=== PATIENT | female | born 1935 | race Hispanic/Latino ===

== ENCOUNTER 2018-04-22 10:21 | Day surgery (SDC) | payer MEDICARE, OTHER ==
[2018-04-22] MEDS ORDERED: Propofol 10 mg/ml Inj (20 ML) ONE (13:51)
[2018-04-22 13:52] VITALS: BMI 26.6
[2018-04-22] MEDS ORDERED: Ciprofloxacin 400mg/200ml D5W 400 MG/200 ML BAG IVPB ONE (13:56)
[2018-04-22] MEDS ORDERED: Gentamicin 160 MG in Sodium Chloride 0.9% 100 ML IVPB ONE (14:00)
--- NOTE | 2018-04-22 14:32 | PCM.SURG1 ---
Surgeon's Initial Post Op Note - Surgeon's Notes Surgeon: Sybil Sole Ruffer: MOUNIKA Type of Anesthesia: General Mask Anesthesia Administered By: staff Pre-Operative Diagnosis: Right upper ureteral calculi Operative Findings: Right renal pelvic calculi Post-Operative Diagnosis: Right renal pelvic calculi Operation Performed: Cysto change ureteral stent Specimen/Specimens Removed: stent Estimated Blood Loss: EBL {In ML}: 0 Blood Products Given: N/A Drains Used: No Drains Post-Op Condition: Good Date of Surgery/Procedure: 04/22/18 Time of Surgery/Procedure: 14:32
[2018-04-22 17:21] VITALS: BP 157/75; PULSE 67; RESP 18; TEMP 97; O2SAT 98
--- NOTE | 2018-04-23 01:46 | OP ---
PROCEDURE DATE: 04/22/2018 PREOPERATIVE DIAGNOSIS: Right upper ureteral calculi. POSTOPERATIVE DIAGNOSIS: Right renal pelvic calculi. PROCEDURE: Cystoscopy and change of double J stent. DESCRIPTION OF PROCEDURE: The procedure is as follows: Prior to the procedure, a detailed informed consent was obtained from the patient. She understands the limitations and risk and complications of this procedure. She was brought into the room, and she was cystoscoped with a #21 Storz panendoscope after a KUB was done revealing a renal pelvic calculi. The tip of the stent was grasped and pulled out through the urethra. A guidewire was passed through the stent, and then the stent was removed, leaving the guidewire deployed in the renal pelvis. A second new stent was placed over this existing guidewire under fluoroscopic control. It was passed up to the right renal pelvis leaving a curl within the pelvis and the stent was deployed leaving a curl within the bladder. The patient tolerated the procedure well. She will need lithotripsy prior to next attempt to remove the stent. The stone is too big to pass spontaneously. Jed Devine MD
--- NOTE | 2018-04-23 12:13 | RAD ---
HISTORY: KIDNEY STONES COMPARISON: 03/11/2018 FINDINGS: BOWEL: Normal. No obstruction. No free air. BONES: Normal. OTHER FINDINGS: Stable position of double-J stent catheter on the right. Right renal calculus again identified medial to the stent measuring 9 x 12 mm. IMPRESSION: No significant interval change compared to the prior examination(s).
--- NOTE | 2018-04-23 15:12 | RAD ---
PROCEDURE: HISTORY: As Above COMPARISON: None TECHNIQUE: Total fluoroscopic time utilized during the procedure: 19 point sick seconds. Total dose 0.66184 mGy cm squared FINDINGS: Submitted images from the current procedure: 4 Please refer to the physician's notes performing the procedure. IMPRESSION: Less than 1 hour fluoroscopic time utilized during performance of the procedure
== END 2018-04-22 17:23 | disposition home or self-care (01) ==
LOC: C.SDS 10:21
PROVIDERS: ATTEND Urology
DX: N20.1 Calculus of ureter (principal)
CPT/HCPCS: 52310; 74019; 82948; C1769; C2617; J0744

== ENCOUNTER 2018-05-27 11:45 | Day surgery (SDC) | payer MEDICARE, OTHER ==
[2018-05-27 12:48] VITALS: RESP 20
[2018-05-27] MEDS ORDERED: Gentamicin 160 MG in Sodium Chloride 0.9% 100 ML IVPB ONE (15:12)
[2018-05-27] MEDS ORDERED: Ciprofloxacin 400mg/200ml D5W 400 MG/200 ML BAG IVPB ONE (15:17)
[2018-05-27] MEDS ORDERED: Etomidate 20 mg/10ml Inj IV ONE (15:20)
[2018-05-27] MEDS ORDERED: Midazolam 2 MG/2 ML VIAL ONE (15:20)
[2018-05-27] MEDS ORDERED: Lidocaine 2% Jelly (Uro-Jet) ONE (15:38)
--- NOTE | 2018-05-27 15:46 | PCM.SURG1 ---
Surgeon's Initial Post Op Note - Surgeon's Notes Surgeon: Sybil Rn Transport: [email or web address] Type of Anesthesia: General LMA Anesthesia Administered By: Staff Pre-Operative Diagnosis: Stent Operative Findings: stent Post-Operative Diagnosis: stent Operation Performed: Cysto and removal of right stent Specimen/Specimens Removed: stent Estimated Blood Loss: EBL {In ML}: 0 Drains Used: No Drains Post-Op Condition: Good Date of Surgery/Procedure: 05/27/18 Time of Surgery/Procedure: 15:45
[2018-05-27] MEDS ORDERED: HYDROmorphone 0.5 mg/0.5 ml ISec IVP PRN (16:02)
[2018-05-27] MEDS ORDERED: Lactated Ringer's 1,000 ML IV SCH (16:15)
[2018-05-27 18:53] VITALS: BP 121/56; PULSE 60; TEMP 97.9; O2SAT 93
--- NOTE | 2018-05-28 21:06 | OP ---
Copied To: Jed Devine MD Attending MD: Jed Devine MD PROCEDURE DATE: 05/27/2018 PREOPERATIVE DIAGNOSIS: Right indwelling ureteral stent. POSTOPERATIVE DIAGNOSIS: Right indwelling ureteral stent. PROCEDURE: Cystoscopy and removal of stent. SURGEON: Jed Devine MD FINDINGS: A stent in good position in the right ureter. DESCRIPTION OF PROCEDURE: The patient was advised of all the risks and complications of this procedure and its limitation. She is aware of the possibility of renal colic after removing the stent and the possibility of the 2 mm stone present on previous x-rays obstructing. She consented to the procedure and is willing to accept the risks. She was brought into the room and a timeout was taken according to the rules and regulations of [facility]. The patient was then given prophylactic antibiotics and draped and prepped in the usual manner. She was cystoscoped with a #21 Storz panendoscope. The bladder was inspected thoroughly. There was no evidence of urothelial tumor or stone. Ureteral stent was seen protruding from the right ureteral orifice. The left ureteral orifice effluxed clear urine. The stent was grasped and removed. The patient tolerated this procedure well. In the recovery area, she was given detailed postoperative instructions, her family was advised also, and she will follow up in our office in one month or with any further renal colic. Jed Devine MD
== END 2018-05-27 19:03 | disposition home or self-care (01) ==
LOC: C.SDS 11:45
PROVIDERS: ATTEND Urology
DX: Z46.6 Encounter for fitting and adjustment of urinary device (principal)
CPT/HCPCS: 52310; 82948; 88300; J0744; J1580; J2001; J2250; J3010